=== PATIENT | male | born 2005 | race Caucasian/White ===

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

== ENCOUNTER → 2025-01-31 | Outpatient (CLI) | payer OTHER ==
[2025-01-31 14:14] LABS: FREE T4 1.11 NG/DL (0.83-1.43)
== END ==
LOC: M LABDRWAD 08:11
PROVIDERS: ATTEND Registered Nurse
DX: F43.23 Adjustment disorder with mixed anxiety and depressed mood (principal); R53.83 Other fatigue

== ENCOUNTER → 2025-03-08 | Outpatient (CLI) | payer OTHER | LOC: M RAD 10:16 | PROVIDERS: ATTEND Registered Nurse | DX: N50.819 Testicular pain, unspecified (principal); N50.3 Cyst of epididymis ==

== ENCOUNTER → 2025-04-05 | Outpatient (REF) | payer OTHER ==
[2025-04-05 15:02] LABS: THYROID PEROXIDASE ANTIBODY 29.0 U/ML (<60.0)
[2025-04-05 15:04] LABS: FREE T4 1.23 NG/DL (0.83-1.43)
== END ==
LOC: M LABDRWAD 13:28
PROVIDERS: ATTEND Registered Nurse
DX: E03.9 Hypothyroidism, unspecified (principal)

== ENCOUNTER → 2025-05-06 | Outpatient (REF) | payer OTHER ==
[2025-05-07 11:33] LABS: T P ELECTROPHORESIS SO 7.7 g/dL (6.3-8.2)
[2025-05-10 09:48] LABS: ALBUMIN SPEP 4.9 g/dL (3.8-4.8); ALPHA-1-GLOBULINS SO 0.3 g/dL (0.2-0.3); ALPHA-2-GLOBULINS SO 0.9 g/dL (0.5-0.9); BETA 2 GLOBULIN 0.4 g/dL (0.2-0.5); BETA-GLOBULIN SO 0.5 g/dL (0.4-0.6); GAMMA GLOBULINS SO 0.8 g/dL (0.8-1.7)
== END ==
LOC: M LABDRWAD 13:02
PROVIDERS: ATTEND Internal Medicine Rheumatology
DX: R53.83 Other fatigue (principal)

== ENCOUNTER → 2025-05-18 | Outpatient (REF) | payer OTHER ==
[2025-05-18 15:45] LABS: FREE T4 1.06 NG/DL (0.83-1.43)
== END ==
LOC: M LABDRWAD 14:43
PROVIDERS: ATTEND Registered Nurse
DX: E03.9 Hypothyroidism, unspecified (principal)

== ENCOUNTER → 2025-05-18 | Outpatient (REF) | payer OTHER | LOC: M LABDRWAD 14:42 | PROVIDERS: ATTEND Internal Medicine Rheumatology | DX: R79.89 Other specified abnormal findings of blood chemistry (principal) ==